=== PATIENT | male | born 1990 | race Two or more races ===

== ENCOUNTER 2021-01-14 12:44 | Emergency (ER) | payer SELFPAY ==
[2021-01-14 13:03] VITALS: BP 154/93; PULSE 73; TEMP 97.6; BMI 31.3
== END 2021-01-14 15:13 | disposition home or self-care (01) ==
LOC: JERFT 12:44
PROC: 0H98XZZ Drainage of Buttock Skin, External Approach (ICD-10-PCS; principal; 2021-01-14)
DX: L02.31 Cutaneous abscess of buttock (principal)
CPT/HCPCS: 99282-25